=== PATIENT | male | born 1975 | race Caucasian/White ===

== ENCOUNTER 2016-11-07 17:51 | Emergency (ER) | payer OTHER ==
[~2016-11-07] VITALS: Ht 165.1 cm; Wt 84.0 kg
[~2016-11-07 17:51] MED LIST: ASPEC81 PO; ATEN-175 PO; ATOR-26 PO; CLOP1TAB5 PO; IBUP-1050 PO; LISI-729 PO; NTRSLP4 SL
[2016-11-07 17:58] VITALS: TEMP 36.5; Ht 165.1 cm; Wt 84.0 kg
[2016-11-07] MEDS ORDERED: KETOROLAC TROMETHAMINE 60 MG/2 ML VIAL IM STA (18:28)
--- NOTE | 2016-11-07 19:12 | EMERGENCY ROOM VISIT NOTE ---
History First contact with patient: 18:05 Chief Complaint: BACK PAIN Stated Complaint: BACK PAIN History of Present Illness The patient is a 41 year old male who presents to the Emergency Room with complaints of a sudden onset of back pain. The patient states that he was moving a box off the countertop, and when he went to turn around he felt a popping sensation in his low back. He states that his legs "gave out" and he fell to the ground. He reports pain from his lower back radiating down both his legs. He states that his legs feel like they are "on fire." The symptoms are worse in the right leg than the left leg. He states that his legs are shaking. He reports it is more painful to sit. He does report a history of back problems. He states he was seen a few years ago and had physical therapy, which completely resolved his symptoms. He rates his current discomfort a 7/ 10. He did not take anything at home for his pain. He denies any urinary symptoms, incontinence, numbness or weakness. He denies nausea, vomiting or abdominal pain. Review of Systems A complete 10 point review of systems was reviewed with the patient with pertinent positives and negatives as per history of present illness. All else were negative. Past Medical/Surgical History Medical Problems: (1) Acute [place] inferior lateral first episode care (2) Anterior myocardial infarction (3) Coronary Atherosclerosis Of [place] Coronary Vessel (4) Gout (5) Hyperlipidemia Nec/Nos (6) Hypertension Nos (7) Hypertension Nos (8) Kidney stones (9) Right shoulder strain (10) ST elevation [place] (STEMI) (11) Tobacco Use Disorder (12) Work related injury Surgical Problems: (1) History of cardiac catheterization (2) S/P PTCA (percutaneous transluminal coronary angioplasty) Family History Heart disease Hypertension Social History Smoking Status: Current Every Day Smoker Alcohol Use: none Drug Use: none Marital Status: Housing Status: lives with significant other Occupation Status: employed Current/Historical Medications Scheduled Aspirin (Aspirin EC Low Dose), 81 MG PO QAM Atenolol (Tenormin), 100 MG PO DAILY Atorvastatin (Lipitor), 80 MG PO DAILY Clopidogrel Bisulfate (Plavix), 75 MG PO DAILY Lisinopril (Zestril), 5 MG PO DAILY Prednisone (Prednisone), 0 PO DAILY Scheduled PRN Hydrocodone/Acetaminophen 5MG/325MG ([place] 5MG/325MG), 1-2 TABLET PO Q4H PRN for Pain Ibuprofen (Advil), 200-800 MG PO Q4H PRN for Pain Allergies Coded Allergies: No Known Allergies (Unverified , 11/07/16) Physical Exam Vital Signs Date Time Temp Pulse Resp B/P (MAP) Pulse Ox O2 Delivery O2 Flow Rate FiO2 11/07/16 21:06 82 20 134/104 96 11/07/16 20:01 80 18 171/112 98 Room Air 11/07/16 17:58 36.5 95 22 177/100 98 Room Air Physical Exam VITALS: Vitals are noted on the nurse's note and reviewed by myself. Vital signs stable. GENERAL: This is a 41-year-old male, laying on his side and appears to be in pain, nondiaphoretic, well-developed well-nourished. SKIN: No rashes noted. HEART: Regular rate and rhythm without murmurs gallops or rubs. LUNGS: Clear to auscultation bilaterally without wheezes, rales or rhonchi. No retractions or accessory muscle use. ABDOMEN: Soft, nontender. MUSCULOSKELETAL: There is no tenderness over the lumbar spinous processes or paraspinous muscles. Strength 4/5 in bilateral lower extremities. Patellar reflexes 2+. NEURO: Patient was alert and oriented to person place and time. Normal sensation to light and sharp touch. Deep tendon reflexes 2+ throughout. Medical Decision & Procedures ER Provider Diagnostic Interpretation: MRI OF THE LUMBAR SPINE WITHOUT CONTRAST FINDINGS: For purposes of numbering on this exam, the L5-S1 disc space is assigned to axial image 26 of 30. There is no intracanalicular mass or fluid collection. Study is mildly compromised by motion artifact. Conus terminates at the upper L1 level. Paravertebral soft tissues are unremarkable. Several schmorl's nodes are noted. L1-2: There is minimal disc bulge with a central annular tear and tiny central disc protrusion. Central canal and neural foramen are patent. L2-3: Central canal and neural foramen are patent. L3-4: Central canal and neural foramen are patent. L4-5: There is a tiny central disc protrusion. The central canal is patent. There is mild narrowing of the right neural foramen. This is unchanged since prior MRI of October 16, 2011. L5-S1: There is a small central disc protrusion. The central canal is patent. There is mild facet arthrosis. There is mild narrowing of both neural foramen. IMPRESSION: 1. No change in appearance of the lumbar spine since MRI of October 16, 2011. No fracture. 2. Small central disc protrusions at L5-S1 and L4-L5. Patent central canal. 3. Mild multilevel facet arthrosis with mild multilevel neural foraminal stenosis. Medications Administered Medications (Trade) Dose Ordered Sig/Aly Route Start Time Stop Time Status Last Admin Dose Admin Ketorolac Tromethamine (Toradol Inj) 60 mg NOW STAT IM 11/07/16 18:28 11/07/16 18:29 DC 11/07/16 18:49 60 MG Morphine Sulfate (MoRPHine SULFATE INJ) 8 mg NOW STAT IM 11/07/16 20:23 11/07/16 20:24 DC 11/07/16 20:44 8 MG Acetaminophen/ Hydrocodone Bitart ([place] 5/325mg Home Pack) 1 homepack UD ONCE PO 11/07/16 21:00 11/07/16 21:01 DC 11/07/16 21:00 1 HOMEPACK ED Course The patient was evaluated as above. Patient was medicated with 60 mg Toradol intramuscularly. He declined narcotic analgesics. MRI of the lumbar spine was performed and read by radiology as above. Patient was reevaluated and had little relief. He was able to sit up and move more easily. 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 He was ordered 8 mg morphine IM. Discharge instructions were reviewed with the patient. The patient verbalized understanding of my assessment and treatment plan and was discharged home in good condition. Medical Decision Differential diagnosis includes cauda equina syndrome, cord compression, disc herniation, muscle spasm, lumbar strain, epidural abscess, malignancy, transverse myelitis, urinary tract infection, colitis, diverticulitis, kidney stone, among others. The patient is a 41-year-old male who presents today complaining of lumbar back pain with bilateral radiculopathy. Physical exam showed mild bilateral weakness , which may be due to the patient's discomfort. Due to his extreme discomfort and sudden onset of bilateral radiculopathy, a lumbar spine MRI was ordered. This was interpreted by radiology with no significant findings. He does have some degenerative disc disease. He has followed up with ortho spine in the past and was referred back to them. He did have some relief with Toradol and morphine. He was given a short course of [place] to be taken at home. Based on the patient's presentation and work up, I feel the patient is stable for outpatient treatment. The patient was educated to return to the emergency department for any worsening of their current condition or new/concerning symptoms. He will follow up with his pcp and Dr. Nieves. Medication reconciliation: I attest that I have personally reviewed the patient 's current medication list. Blood pressure screening: Patient was found to have an elevated blood pressure and was referred to their primary care provider for recheck and further treatment. [place] Drug Monitoring Program Search Results: patient reviewed within database, no issues identified Impression Primary Impression: Lumbar radiculopathy Departure Information Dispostion Home / Self-Care Condition GOOD Prescriptions Prednisone (Prednisone) 20 Mg Tab 0 PO DAILY, #18 TAB 3 DAILY FOR 3 DAYS, THEN 2 DAILY FOR 3 DAYS, THEN 1 DAILY FOR 3 DAYS. Prov: Kareen Johnson PA-C 11/07/16 Hydrocodone/Acetaminophen 5MG/325MG ([place] 5MG/325MG) Tab 1-2 TABLET PO Q4H Y for Pain, #15 TAB For Initial Treatment Prov: Kareen Johnson PA-C 11/07/16 Referrals Coy Wyatt D.O. (PCP) Patient Instructions My [facility] Additional Instructions You have been treated in the Emergency Department for Back Pain. You have received pain medicine in the emergency department which impairs your ability to operate a vehicle. It is illegal for you to drive after receiving these medicines. You have been prescribed [place] to be used for pain control. This is a narcotic medication. You cannot drive or consume alcohol while on this medicine. This medicine should only be used for pain that cannot be controlled with over-the- counter pain medicines. For pain control, you can use the following [id number] medicines (if >12 yo): - Regular strength (325mg/tab) Tylenol (acetaminophen) 2 tabs every 4-6 hours as needed. Do not exceed 12 tablets in a 24 hour period. Avoid taking more than 4 grams (4000 mg) of Tylenol per day. This includes any other sources of acetaminophen you may take on a regular basis. - Regular strength (200 mg/tab) Advil (ibuprofen) 1-2 tabs every 4-6 hours as needed. Do not exceed a dose of 3200 mg per day. If this is an acute injury, ice can be applied to the area of pain for the first 3 days to help decrease pain and inflammation. After the first 3 days, a heating pad can be used over the area for continued soothing relief. Follow-up with your back specialist for further evaluation of your back pain. Return to the Emergency Department if your current symptoms worsen despite treatment course outlined above, or if you develop any of the following symptoms : intractable pain despite aforementioned treatment course, loss of control of your bowel or bladder, numbness or tingling in your groin, or development of a fever.
--- NOTE | 2016-11-07 20:12 | DIAGNOSTIC IMAGING REPORT ---
MRI OF THE LUMBAR SPINE WITHOUT CONTRAST CLINICAL HISTORY: Low back pain with bilateral radiculopathy and leg weakness. COMPARISON STUDY: Lumbar spine MRI October 16, 2011 and lumbar spine radiographs April 24, 2012. TECHNIQUE: Utilizing a 1.5 Nona magnet and dedicated coil, multiplanar, multiecho imaging of the lumbar spine was performed without IV contrast. FINDINGS: For purposes of numbering on this exam, the L5-S1 disc space is assigned to axial image 26 of 30. There is no intracanalicular mass or fluid collection. Study is mildly compromised by motion artifact. Conus terminates at the upper L1 level. Paravertebral soft tissues are unremarkable. Several schmorl's nodes are noted. L1-2: There is minimal disc bulge with a central annular tear and tiny central disc protrusion. Central canal and neural foramen are patent. L2-3: Central canal and neural foramen are patent. L3-4: Central canal and neural foramen are patent. L4-5: There is a tiny central disc protrusion. The central canal is patent. There is mild narrowing of the right neural foramen. This is unchanged since prior MRI of October 16, 2011. L5-S1: There is a small central disc protrusion. The central canal is patent. There is mild facet arthrosis. There is mild narrowing of both neural foramen. IMPRESSION: 1. No change in appearance of the lumbar spine since MRI of October 16, 2011. No fracture. 2. Small central disc protrusions at L5-S1 and L4-L5. Patent central canal. 3. Mild multilevel facet arthrosis with mild multilevel neural foraminal stenosis. Electronically signed by: Otf Russell M.D. 11/07/2016 8:10 PM Dictated Date/Time: 11/07/2016 8:03 PM
[2016-11-07] MEDS ORDERED: MoRPHine SULFATE 10 MG/ML CARP/VIAL IM STA (20:23)
[2016-11-07] MEDS ORDERED: HYDR-5688 PO (20:47)
[2016-11-07] MEDS ORDERED: NORCO 5/325MG HOME PACK PO ONE (21:00)
[2016-11-07] MEDS ORDERED: PRED20TA PO (21:01)
[2016-11-07 21:06] VITALS: BP 134/104; PULSE 82; O2SAT 96
== END 2016-11-07 21:07 | disposition home or self-care (01) ==
LOC: C.EDB 17:52 → C.EDC 21:07
DX: M54.16 Radiculopathy, lumbar region (principal); I25.2 Old myocardial infarction; I25.10 Atherosclerotic heart disease of native coronary artery without angina pectoris; M10.9 Gout, unspecified; E78.5 Hyperlipidemia, unspecified; I10 Essential (primary) hypertension; Z87.442 Personal history of urinary calculi; Z82.49 Family history of ischemic heart disease and other diseases of the circulatory system; F17.210 Nicotine dependence, cigarettes, uncomplicated; Z79.82 Long term (current) use of aspirin; Z79.899 Other long term (current) drug therapy

== ENCOUNTER 2019-03-17 10:17 | Inpatient (IN) ==
[~2019-03-17 10:17] MED LIST changes: -ASPEC81 PO; -ATEN-175 PO; -ATOR-26 PO; -CLOP1TAB5 PO; -IBUP-1050 PO; -LISI-729 PO; -NTRSLP4 SL; +SODIUM CHLORIDE 0.9% 1000ML 1,000 ML IV SCH
[2019-03-17] MEDS ORDERED: OPTIRAY 320 125ml IV PRN (10:25)
[2019-03-17] MEDS ORDERED: ALTEPLASE For Stroke IV STA (10:30)
--- NOTE | 2019-03-17 10:32 | CT Scan Report ---
CT head/brain wo con CLINICAL HISTORY: Unresponsive patient. Possible acute stroke. COMPARISON STUDY: No previous studies for comparison. TECHNIQUE: Axial CT of the brain is performed from the vertex to the skull base. IV contrast was not administered for this examination. A dose lowering technique was utilized adhering to the principles of ALARA. CT DOSE: FINDINGS: No intra or extra-axial mass lesions are visualized. There is no CT evidence of acute cortical infarc tion. There is no evidence of midline shift. There is no acute hemorrhage. No calvarial fractures ar e visualized. There are minor white matter hypodensities likely on a small vessel basis. There is a left cerebellar hypodensity versus artifact. There is no evidence of pathologic ventricular dilatation. There is partial opacification of multiple ethmoid air cells. IMPRESSION: 1. No evidence of acute hemorrhage 2. Left cerebellar hypodensity versus artifact. If neurological symptoms persist, an MRI of the brain should be considered in follow-up Electronically signed by: Pérez Farrar M.D. 03/17/2019 10:31 AM
[2019-03-17] MEDS ORDERED: ONDANSETRON INJ 2 MG/ML 2 ML VIAL ONE (10:37)
[2019-03-17] MEDS ORDERED: Alteplase Bolus 7.2 MG in SYRINGE 0 ML IV ONE (10:40)
[2019-03-17] MEDS ORDERED: ALTEPLASE, RECOMBINANT 100 MG VIAL IV ONE (10:41)
[2019-03-17] MEDS ORDERED: PRIMARY PLUMSET, PE LINED TUBING, 113 IN, NON-DEHP (2260-0500) IV ONE (10:41)
[2019-03-17] MEDS ORDERED: ALTEPLASE, RECOMBINANT 64 MG in EMPTY BAG 0 ML IV ONE (10:41)
--- NOTE | 2019-03-17 10:41 | CT Scan Report ---
CT angio neck with con CLINICAL HISTORY: 43 years-old Male presenting with stroke alert, unresponsive, weakness. TECHNIQUE: Multidetector CT angiography of the neck was performed after the administration of intrave nous contrast. 3-D volumetric and/or maximum intensity projection (MIP) images were subsequently martin nstructed for review. IV contrast: 119 mL of Optiray 320. One or more dose lowering techniques were u sed consistent with the principles of ALARA (as low as reasonably achievable), including automatic ex posure control, mA or kV adjustment to individual patient size, and/or use of iterative reconstructio n. Stenosis measurements were based on NASCET-like criteria (distal lumen diameter as the denominator for stenosis measurement). COMPARISON: None. CT DOSE (mGy.cm): The estimated cumulative dose is 1162.85 mGy.cm. FINDINGS: Supervisor Webbing topogram: Unremarkable. Aortic arch: Normal three-vessel aortic arch with patent origins of the branch vessels. Innominate artery: Patent. Right subclavian artery: Patent. Right common carotid artery: Patent. Right internal and external carotid arteries: Right carotid bifurcation patent. Right internal and ex ternal carotid arteries widely patent. Left common carotid artery: Patent. Left internal and external carotid arteries: Left carotid bifurcation patent. Left internal and exter nal carotid arteries widely patent. Left subclavian artery: Patent. Vertebral arteries: Left dominant vertebral artery. Origin and course of the left vertebral artery pa tent. Nonopacification of the origin and proximal course of the right vertebral artery, which is subs equently reconstituted at the level of C6. The artery is again not opacified in the foramen transvers arium at the level of C4 with subsequent reconstitution. Other: Limited intracranial evaluation within normal limits. Soft tissues of the neck normal allowing for the phase of contrast. Normal cervical spine. Mosaic attenuation of the lung apices. IMPRESSION: 1. Intermittent nonopacification of the right vertebral artery including the origin and proximal cou rse to the level of C6. Intermittent reconstitution of flow from C6 to C5 with nonopacification at th e level of C4 and subsequent reconstitution above this level. This is concerning for acute vascular i njury, namely multifocal occlusion/dissection. Alternatively, intermittent flow within the right vert ebral artery could relate to the fact that it is the nondominant vertebral artery with slower flow. 2. Notably, the posterior circulation relies on a left dominant vertebral artery. 3. Normal anterior circulation. 4. Small airways disease versus congestive change at the lung apices. The report will be called/faxed according to standard departmental protocol. Electronically signed by: Juan Pablo Reeves M.D. 03/17/2019 10:39 AM
[2019-03-17 10:45] LABS: Basophils # (auto) 0.02 K/uL (0-0.2); Basophils % (auto) 0.2 %; Eosinophils # (auto) 0.17 K/uL (0-0.5); Eosinophils % (auto) 1.8 %; Hemoglobin 12.2 g/dL (14.0-18.0); Immature Granulocytes # (auto) 0.03 K/uL (0.00-0.02); Immature Granulocytes % (auto) 0.3 %; Lymphocytes # (auto) 3.25 K/uL (1.2-3.4); Lymphocytes % (auto) 34.2 %; Mean Corpuscular Hemoglobin 28.4 pg (25-34); Mean Corpuscular Hgb Conc 33.9 g/dL (32-36); Mean Corpuscular Volume 83.9 fL (80-100); Mean Platelet Volume 10.3 fL (7.4-10.4); Monocytes # (auto) 0.66 K/uL (0.11-0.59); Monocytes % (auto) 6.9 %; Neutrophils # (auto) 5.38 K/uL (1.4-6.5); Neutrophils % (auto) 56.6 %; Platelet Count 196 K/uL (130-400); RDW Coefficient of Variation 13.7 % (11.5-14.5); RDW Standard Deviation 41.1 fL (36.4-46.3); Red Blood Count 4.29 M/uL (4.7-6.1); White Blood Count 9.51 K/uL (4.8-10.8)
--- NOTE | 2019-03-17 10:45 | CT Scan Report ---
CT angio head w con CLINICAL HISTORY: weakness TECHNIQUE: CT angiography of the head was performed in a dynamic helical fashion during intravenous a dministration of 119 cc of Optiray 320. MIP imaging was performed. A dose lowering technique was util ized adhering to the principles of ALARA. CT DOSE: COMPARISON STUDY: No previous studies for comparison. FINDINGS: There are no lesion suspicious for aneurysm. There are no major intracranial branch occlusi ons. The dural venous sinuses appear patent. IMPRESSION: Unremarkable CT angiography of the brain. Electronically signed by: Pérez Farrar M.D. 03/17/2019 10:43 AM
[2019-03-17 10:54] LABS: iSTAT Creatinine 0.9 mg/dl (0.6-1.3); iSTAT Hemoglobin 11.9 g/dl (14.0-18.0); iSTAT Ionized Calcium 1.08 mmol/l (1.12-1.32); iSTAT Potassium 3.3 mEq/L (3.3-5.0)
[2019-03-17 10:56] LABS: INR 1.1 (0.9-1.1); Partial Thromboplastin Ratio 0.9; Partial Thromboplastin Time 24.2 Seconds (21.0-31.0); Prothrombin Time 11.1 Seconds (9.0-12.0)
--- NOTE | 2019-03-17 10:58 | Emergency Department Note ---
Entered by Jaci Steen acting as a scribe for History of Present Illness General Chief complaint: Stroke Alert Source: patient and EMS History of Present Illness Onset (ago): minute(s) (41) Location: head Pain Consistency: + other (episode) Maximum Pain Intensity: 6 Quality: + other (stroke symptoms) Associated symptoms: + headaches, + nausea/vomiting (nausea), + syncope, + weakness (left arm) and + other (left facial droop) The patient is a 43 year old male who presents to the Emergency Room with complaints of an episode of stroke symptoms starting at 0938, 41 minutes ago. 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 They report that when he came to, he had a left sided deficit. They state that he has had a left sided facial droop and left arm weakness. They state that 911 was immediately called and when they arrived, they called here for [facility] right after. The patient notes that he was feeling fine all morning till this episode besides having a headache that s tarted last night. The patient complains of nausea. Home Medications Home Medications Medication Instructions Recorded Confirmed Type atenolol 100 mg tablet 100 mg PO DAILY #90 tab 03/09/19 03/17/19 History atorvastatin 80 mg tablet 80 mg PO DAILY #90 tab 03/09/19 03/17/19 History clopidogrel 75 mg tablet 75 mg PO DAILY #90 tab 03/09/19 03/17/19 History lisinopril 5 mg tablet 5 mg PO DAILY #90 tab 03/09/19 03/17/19 History aspirin [Aspir-81] 81 mg PO DAILY 03/17/19 03/17/19 History Allergies Allergy/AdvReac Type Severity Reaction Status Date / Time No Known Allergies Allergy Unverified 03/17/19 11:13 Past Med/Surg History Medical History Right shoulder strain (Resolved) Acute NM inferior lateral first episode care (Resolved) Lumbar radiculopathy (Acute) Coronary atherosclerosis HLD (hyperlipidemia) HTN (hypertension) Kidney stones Surgical History History of PTCA S/P cardiac cath Family History Other Heart disease Hypertension Social History Preferred Language: Syriac Communication Ability: Effective 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 and A total of 10 systems reviewed and were otherwise negative Physical Exam Vital Signs Vital Signs - 24 hr 03/17/19 09:58 03/17/19 10:31 03/17/19 10:40 Temperature 36.9 C Temperature Source Oral Sepsis Recent Fever Within 48 Hours No Sepsis New/Unexplained Change in Mental Status No Sepsis Action Taken by Nursing No Action Required Pulse Rate 92 H 89 82 Pulse Rate [Apical] Pulse Rate from SpO2 Sensor 90 Respiratory Rate 16 34 H 15 Blood Pressure 142/82 H 142/82 H 145/94 H Blood Pressure [Left Arm] Blood Pressure Mean 102 102 111 Blood Pressure Mean [Left Arm] Pulse Oximetry 97 97 Oxygen Delivery Method Room Air 03/17/19 10:44 03/17/19 10:50 03/17/19 10:51 Temperature Temperature Source Sepsis Recent Fever Within 48 Hours Sepsis New/Unexplained Change in Mental Status Sepsis Action Taken by Nursing Pulse Rate 75 70 80 Pulse Rate [Apical] 68 Pulse Rate from SpO2 Sensor 70 80 Respiratory Rate 18 14 45 H Blood Pressure 128/81 135/88 Blood Pressure [Left Arm] 135/88 Blood Pressure Mean 96 103 Blood Pressure Mean [Left Arm] 103 Pulse Oximetry 97 97 Oxygen Delivery Method Room Air 03/17/19 11:00 03/17/19 11:10 03/17/19 11:20 Temperature Temperature Source Sepsis Recent Fever Within 48 Hours Sepsis New/Unexplained Change in Mental Status Sepsis Action Taken by Nursing Pulse Rate 73 68 69 Pulse Rate [Apical] Pulse Rate from SpO2 Sensor 73 67 70 Respiratory Rate 20 21 13 Blood Pressure 135/83 134/86 127/85 Blood Pressure [Left Arm] Blood Pressure Mean 100 102 99 Blood Pressure Mean [Left Arm] Pulse Oximetry 98 98 100 Oxygen Delivery Method 03/17/19 11:30 03/17/19 11:40 Temperature Temperature Source Sepsis Recent Fever Within 48 Hours Sepsis New/Unexplained Change in Mental Status Sepsis Action Taken by Nursing Pulse Rate 65 63 Pulse Rate [Apical] Pulse Rate from SpO2 Sensor 65 62 Respiratory Rate 18 17 Blood Pressure 124/92 131/87 Blood Pressure [Left Arm] Blood Pressure Mean 102 101 Blood Pressure Mean [Left Arm] Pulse Oximetry 99 99 Oxygen Delivery Method GENERAL: The patient is awake and on follows commands. EYES: The conjunctivae are clear. The pupils are round and reactive. The zo ent does not have a gaze preference. EARS, NOSE, MOUTH AND THROAT: The nose is without any evidence of any deformity. Mucous membranes are moist.Tongue is midline NECK: The neck is nontender and supple. RESPIRATORY: Normal respiratory effort is noted. There is no evidence of wheezing rhonchi or rales to auscultation. CARDIOVASCULAR: Regular rate and rhythm noted. There no murmurs rubs or gallops normal S1 normal S2 GASTROINTESTINAL: The abdomen is soft. Bowel sounds are present in all quadrants. Abdomen is nontender. MUSCULOSKELETAL/EXTREMITIES: There is no evidence of gross deformity. Full range of motion is noted in the hips and shoulders. SKIN: There is no obvious evidence of any rash. There are no petechiae, pallor or cyanosis noted. NEUROLOGIC: Patient is oriented to person place and situation. He answers questions appropriately. He does have a slight facial droop involving the left corner of the mouth. There is a drift in the left upper extremity. Photo Lab Specialist strength is diminished in the left upper extremity compared to the right. The patient is able to hold each of the legs off of the bed approximately 5 seconds. Course 1007: I called a stroke alert at this time. 1019: Past medical records reviewed. The patient was evaluated in room B1. A complete history and physical exam was performed. 1024: I discussed the patient's case with Dr. Nithin Saleem Neurology. He will evaluate the patient via telestroke. 1045: I reevaluated the patient and Dr. Nithin Saleem Neurology is just finishing evaluating him, 1048: I discussed the patient's case with Dr. Nithin Saleem Neurology. He recommends giving the patient TPA at this time and admitting. 1050: I reevaluated the patient and verbally consented him for TPA administration at this time. 1054: TPA was given to the patient at this time. 110: I discussed the patient's case with Dr. Bower [facility] Hospitalist. He will evaluate the patient for further management. 1117: I reevaluated the patient and his is at bedside. I updated the patient and her on his test results. I discussed the treatment plan with them. They verbally agree and understand. Administered Medications Discontinued Medications Sodium Chloride (Nss 1000ml) 1,000 mls @ 50 mls/hr IV .Q20H SEBASTIÁN Stop: 04/16/19 10:14 Last Admin: 03/17/19 10:30 Dose: 50 mls/hr Documented by: [id number] Alteplase, Recombinant 7.2 mg/ (Syringe) 7.2 mls @ 7.2 mls/min IV ONCE ONE Stop: 03/17/19 10:41 Last Admin: 03/17/19 10:52 Dose: 7.2 mls/min Documented by: [id number] Cosigned by: [id number] Alteplase, Recombinant 64 mg/ (EMPTY BAG) 64 mls @ 64 mls/hr IV ONCE ONE Stop: 03/17/19 10:42 Last Infusion: 03/17/19 14:03 Dose: 0 mls/hr Documented by: [id number] Cosigned by: [id number] Admin: 03/17/19 10:54 Dose: 64 mls/hr Documented by: [id number] Cosigned by: [id number] Promethazine HCl (Phenergan) 6.25 mg in 50.25 mls @ 201 mls/hr IV NOW STA Stop: 03/17/19 11:35 Last Infusion: 03/17/19 11:48 Dose: 0 mls/hr Documented by: [id number] Admin: 03/17/19 11:29 Dose: 201 mls/hr Documented by: [id number] Sodium Chloride (Nss 1000ml) 1,000 mls @ 60 mls/hr IV .[id number] SEBASTI[place]N Stop: 04/16/19 12:57 Last Admin: 03/17/19 14:25 Dose: 60 mls/hr Documented by: [id number] Ioversol (Optiray 320 125ml) 119 ml IV ONCE PRN PRN Reason: Interaction Checking Stop: 03/21/19 10:24 Last Admin: 03/17/19 10:25 Dose: 119 ml Documented by: [id number] Ondansetron HCl (Zofran) Confirm Administered Dose 4 mg .ROUTE .[facility] ONE Stop: 03/17/19 10:38 Last Admin: 03/17/19 10:39 Dose: 4 mg Documented by: [id number] Medical Decision Making Differential Diagnosis Differential Diagnosis includes but is not limited to ischemic Stroke, hemorrhagic stroke, bells palsy, mass, neoplasm, migraine headache, seizure, sub arachnoid hemorrhage, TIA, and transient global amnesia. Medical Records Attestation: I reviewed the patient's medical records. Home Medications Current Medication List: was personally reviewed by me Laboratory Data Attestation: I reviewed the patient's lab results. Result diagrams: 03/17/19 10:32 03/17/19 10:32 Lab Results 03/17/19 03/17/19 03/17/19 Range/Units 10:32 10:32 10:32 WBC 9.51 (4.8-10.8) K/uL RBC 4.29 L (4.7-6.1) M/uL Hgb 12.2 L (14.0-18.0) g/dL POC Hgb (14.0-18.0) g/dl Hct 36.0 L (42-52) % POC Hct (42-52) % MCV 83.9 (80-100) fL MCH 28.4 (25-34) pg MCHC 33.9 (32-36) g/dL RDW Std Deviation 41.1 (36.4-46.3) fL RDW Coeff of Jerzy 13.7 (11.5-14.5) % Plt Count 196 (130-400) K/uL MPV 10.3 (7.4-10.4) fL Immature Gran % (Auto) 0.3 % Neut % (Auto) 56.6 % Lymph % (Auto) 34.2 % [place] % (Auto) 6.9 % Eos % (Auto) 1.8 % Baso % (Auto) 0.2 % Immature Gran # (Auto) 0.03 H (0.00-0.02) K/uL Neut # (Auto) 5.38 (1.4-6.5) K/uL Lymph # (Auto) 3.25 (1.2-3.4) K/uL [place] # (Auto) 0.66 H (0.11-0.59) K/uL Eos # (Auto) 0.17 (0-0.5) K/uL Baso # (Auto) 0.02 (0-0.2) K/uL PT 11.1 (9.0-12.0) Seconds POC INR (0.9-1.1) INR 1.1 (0.9-1.1) APTT 24.2 (21.0-31.0) Seconds PTT Ratio 0.9 POC Sodium (135-144) mEq/L Sodium 135 L (136-145) mmol/L POC Potassium (3.3-5.0) mEq/L Potassium 3.3 L (3.5-5.1) mmol/L POC Chloride (101-112) mEq/L Chloride 104 (98-107) mmol/L Carbon Dioxide 20 L (21-32) mmol/L POC Total CO2 (24-31) mEq/l Anion Gap 11.0 (3-11) POC Anion Gap (16-25) mmol/L POC BUN (7-18) mg/dl BUN 12 (7-18) mg/dl Creatinine 1.07 (0.6-1.4) mg/dl POC Creatinine (0.6-1.3) mg/dl Est Cr Clr Drug Dosing 88.1 ml/min Est GFR ( Amer) 97.3 Est GFR (Non-Af Amer) 84.0 BUN/Creatinine Ratio 11.4 (10-20) Glucose 149 H (70-99) mg/dl POC Glucose (70-99) POC Glucose (other) (70-99) mg/dl Calcium 8.2 L (8.5-10.1) mg/dl POC Ioniz Calcium Michi (1.12-1.32) mmol/l Magnesium 2.0 (1.8-2.4) mg/dl Total Bilirubin 0.5 (0.2-1) mg/dl AST 22 (15-37) U/L ALT 27 (12-78) U/L Alkaline Phosphatase 78 (45-117) U/L Troponin I < 0.015 (0-0.045) ng/ml Total Protein 6.0 L (6.4-8.2) gm/dl Albumin 3.5 (3.4-5.0) gm/dl Globulin 2.5 (2.5-4.0) gm/dl Albumin/Globulin Ratio 1.4 (0.9-2) Blood Type Antibody Screen 03/17/19 03/17/19 03/17/19 Range/Units 10:32 10:36 10:36 WBC (4.8-10.8) K/uL RBC (4.7-6.1) M/uL Hgb (14.0-18.0) g/dL POC Hgb (14.0-18.0) g/dl Hct (42-52) % POC Hct (42-52) % MCV (80-100) fL MCH (25-34) pg MCHC (32-36) g/dL RDW Std Deviation (36.4-46.3) fL RDW Coeff of Jerzy (11.5-14.5) % Plt Count (130-400) K/uL MPV (7.4-10.4) fL Immature Gran % (Auto) % Neut % (Auto) % Lymph % (Auto) % [place] % (Auto) % Eos % (Auto) % Baso % (Auto) % Immature Gran # (Auto) (0.00-0.02) K/uL Neut # (Auto) (1.4-6.5) K/uL Lymph # (Auto) (1.2-3.4) K/uL [place] # (Auto) (0.11-0.59) K/uL Eos # (Auto) (0-0.5) K/uL Baso # (Auto) (0-0.2) K/uL PT (9.0-12.0) Seconds POC INR 1.0 (0.9-1.1) INR (0.9-1.1) APTT (21.0-31.0) Seconds PTT Ratio POC Sodium (135-144) mEq/L Sodium (136-145) mmol/L POC Potassium (3.3-5.0) mEq/L Potassium (3.5-5.1) mmol/L POC Chloride (101-112) mEq/L Chloride (98-107) mmol/L Carbon Dioxide (21-32) mmol/L POC Total CO2 (24-31) mEq/l Anion Gap (3-11) POC Anion Gap (16-25) mmol/L POC BUN (7-18) mg/dl BUN (7-18) mg/dl Creatinine (0.6-1.4) mg/dl POC Creatinine (0.6-1.3) mg/dl Est Cr Clr Drug Dosing ml/min Est GFR ( Amer) Est GFR (Non-Af Amer) BUN/Creatinine Ratio (10-20) Glucose (70-99) mg/dl POC Glucose 150 H (70-99) POC Glucose (other) (70-99) mg/dl Calcium (8.5-10.1) mg/dl POC Ioniz Calcium Michi (1.12-1.32) mmol/l Magnesium (1.8-2.4) mg/dl Total Bilirubin (0.2-1) mg/dl AST (15-37) U/L ALT (12-78) U/L Alkaline Phosphatase (45-117) U/L Troponin I (0-0.045) ng/ml Total Protein (6.4-8.2) gm/dl Albumin (3.4-5.0) gm/dl Globulin (2.5-4.0) gm/dl Albumin/Globulin Ratio (0.9-2) Blood Type A Positive Antibody Screen NEGATIVE 03/17/19 Range/Units 10:39 WBC (4.8-10.8) K/uL RBC (4.7-6.1) M/uL Hgb (14.0-18.0) g/dL POC Hgb 11.9 L (14.0-18.0) g/dl Hct (42-52) % POC Hct 35 L (42-52) % MCV (80-100) fL MCH (25-34) pg MCHC (32-36) g/dL RDW Std Deviation (36.4-46.3) fL RDW Coeff of Jerzy (11.5-14.5) % Plt Count (130-400) K/uL MPV (7.4-10.4) fL Immature Gran % (Auto) % Neut % (Auto) % Lymph % (Auto) % [place] % (Auto) % Eos % (Auto) % Baso % (Auto) % Immature Gran # (Auto) (0.00-0.02) K/uL Neut # (Auto) (1.4-6.5) K/uL Lymph # (Auto) (1.2-3.4) K/uL [place] # (Auto) (0.11-0.59) K/uL Eos # (Auto) (0-0.5) K/uL Baso # (Auto) (0-0.2) K/uL PT (9.0-12.0) Seconds POC INR (0.9-1.1) INR (0.9-1.1) APTT (21.0-31.0) Seconds PTT Ratio POC Sodium 135 (135-144) mEq/L Sodium (136-145) mmol/L POC Potassium 3.3 (3.3-5.0) mEq/L Potassium (3.5-5.1) mmol/L POC Chloride 102 (101-112) mEq/L Chloride (98-107) mmol/L Carbon Dioxide (21-32) mmol/L POC Total CO2 20 L (24-31) mEq/l Anion Gap (3-11) POC Anion Gap 18.0 (16-25) mmol/L POC BUN 11 (7-18) mg/dl BUN (7-18) mg/dl Creatinine (0.6-1.4) mg/dl POC Creatinine 0.9 (0.6-1.3) mg/dl Est Cr Clr Drug Dosing ml/min Est GFR ( Amer) Est GFR (Non-Af Amer) BUN/Creatinine Ratio (10-20) Glucose (70-99) mg/dl POC Glucose (70-99) POC Glucose (other) 147 H (70-99) mg/dl Calcium (8.5-10.1) mg/dl POC Ioniz Calcium Michi 1.08 L (1.12-1.32) mmol/l Magnesium (1.8-2.4) mg/dl Total Bilirubin (0.2-1) mg/dl AST (15-37) U/L ALT (12-78) U/L Alkaline Phosphatase (45-117) U/L Troponin I (0-0.045) ng/ml Total Protein (6.4-8.2) gm/dl Albumin (3.4-5.0) gm/dl Globulin (2.5-4.0) gm/dl Albumin/Globulin Ratio (0.9-2) Blood Type Antibody Screen Imaging Data Radiologist's Impression: Radiology results as stated below per my review and the radiologist's interpretation: XR chest 1V portable CLINICAL HISTORY: 43 years-old Male presenting with weakness. TECHNIQUE: Portable upright AP view of the chest was obtained. COMPARISON: 01/17/2015. FINDINGS: Atherosclerosis of the aortic arch. Cardiac silhouette enlarged. Pulmonary vascular prominence and vague perihilar added density. Mildly low lung volumes. No large effusion or pneumothorax. Degenerative changes of the thoracic spine. Upper abdomen normal. IMPRESSION: 1. Apparent cardiomegaly with volume overload and mild congestive change suggested. No darrell pulmonary edema at this time. 2. Mildly low lung volumes with hypoventilatory changes. Electronically signed by: Juan Pablo Reeves M.D. 03/17/2019 11:[address] head/brain wo con CLINICAL HISTORY: Unresponsive patient. Possible acute stroke. COMPARISON STUDY: No previous studies for comparison. TECHNIQUE: Axial CT of the brain is performed from the vertex to the skull base. IV contrast was not administered for this examination. A dose lowering technique was utilized adhering to the principles of ALARA. CT DOSE: FINDINGS: No intra or extra-axial mass lesions are visualized. There is no CT evidence of acute cortical infarction. There is no evidence of midline shift. There is no acute hemorrhage. No calvarial fractures are visualized. There are minor white matter hypodensities likely on a small vessel basis. There is a left cerebellar hypodensity versus artifact. There is no evidence of pathologic ventricular dilatation. There is partial opacification of multiple ethmoid air cells. IMPRESSION: 1. No evidence of acute hemorrhage 2. Left cerebellar hypodensity versus artifact. If neurological symptoms persist, an MRI of the brain should be considered in follow-up Electronically signed by: Pérez Farrar M.D. 03/17/2019 10:[address] angio head w con CLINICAL HISTORY: weakness TECHNIQUE: CT angiography of the head was performed in a dynamic helical fashion during intravenous administration of 119 cc of Optiray 320. MIP imaging was performed. A dose lowering technique was utilized adhering to the principles of ALARA. CT DOSE: COMPARISON STUDY: No previous studies for comparison. FINDINGS: There are no lesion suspicious for aneurysm. There are no major intracranial branch occlusions. The dural venous sinuses appear patent. IMPRESSION: Unremarkable CT angiography of the brain. Electronically signed by: Pérez Farrar M.D. 03/17/2019 10:[address] angio neck with con CLINICAL HISTORY: 43 years-old Male presenting with stroke alert, unresponsive, weakness. TECHNIQUE: Multidetector CT angiography of the neck was performed after the administration of intravenous contrast. 3-D volumetric and/or maximum intensity projection (MIP) images were subsequently reconstructed for review. IV contrast: 119 mL of Optiray 320. One or more dose lowering techniques were used consistent with the principles of ALARA (as low as reasonably achievable), including automatic exposure control, mA or kV adjustment to individual patient size, and/or use of iterative reconstruction. Stenosis measurements were based on NASCET-like criteria (distal lumen diameter as the denominator for stenosis measurement). COMPARISON: None. CT DOSE (mGy.cm): The estimated cumulative dose is 1162.85 mGy.cm. FINDINGS: Helminthology Teacher topogram: Unremarkable. Aortic arch: Normal three-vessel aortic arch with patent origins of the branch vessels. Innominate artery: Patent. Right subclavian artery: Patent. Right common carotid artery: Patent. Right internal and external carotid arteries: Right carotid bifurcation patent. Right internal and external carotid arteries widely patent. Left common carotid artery: Patent. Left internal and external carotid arteries: Left carotid bifurcation patent. Left internal and external carotid arteries widely patent. Left subclavian artery: Patent. Vertebral arteries: Left dominant vertebral artery. Origin and course of the left vertebral artery patent. Nonopacification of the origin and proximal course of the right vertebral artery, which is subsequently reconstituted at the level of C6. The artery is again not opacified in the foramen transversarium at the level of C4 with subsequent reconstitution. Other: Limited intracranial evaluation within normal limits. Soft tissues of the neck normal allowing for the phase of contrast. Normal cervical spine. Mosaic attenuation of the lung apices. IMPRESSION: 1. Intermittent nonopacification of the right vertebral artery including the origin and proximal course to the level of C6. Intermittent reconstitution of flow from C6 to C5 with nonopacification at the level of C4 and subsequent reconstitution above this level. This is concerning for acute vascular injury, namely multifocal occlusion/dissection. Alternatively, intermittent flow within the right vertebral artery could relate to the fact that it is the nondominant vertebral artery with slower flow. 2. Notably, the posterior circulation relies on a left dominant vertebral artery. 3. Normal anterior circulation. 4. Small airways disease versus congestive change at the lung apices. The report will be called/faxed according to standard departmental protocol. Electronically signed by: Juan Pablo Reeves M.D. 03/17/2019 10:39 AM ECG Data Attestation: I personally reviewed and interpreted this ECG as follows: Indication: weakness Rate (beats per minute): 87 Rhythm: normal sinus Findings: no PAC, no PVC, no ST depression, no ST elevation, no acute ischemic change and no ectopy Comparison ECG Date: from (01/20/2016) Change: no significant change Blood Pressure Blood Pressure Findings: Elevated blood pressure Blood Pressure Disposition: further management by hospitalist NOLBERTO Powers The patient is a 43-year-old male who presented to the emergency department for an evaluation of acute strokelike symptoms. The patient had been complaining of a headache recently. He also had a syncopal episode while at work. His son called the ambulance immediately after the patient had a syncopal episode. When he was reevaluated after the syncopal episode he was noted to have unilateral weakness with facial droop. The patient was treated with pain medication prior to arrival. His mental status was somewhat obtunded while he was evaluated multiple times his mental status continued to improve. The patient was felt to be a candidate for TPA given his normal initial CAT scan. I discussed this with him as well as his son. I discussed the risks and benefits of TPA with him. I discussed his case with the stroke neurologist from [facility]. The patient received TPA. I discussed the patient's angiography with him as well. He was found to have an area in the vertebral artery which appear to be consistent with either occlusion or dissection. This was discussed with the stroke neurologist and was not felt to be a contraindication at this time to TPA given the patient's symptoms. The patient was reevaluated multiple times. He was slowly improving on subsequent reevaluation. I discussed his case with the on-call [facility] hospitalist. They have agreed to evaluate the patient in the emergency department for further management disposition. Impression & Plan Stroke-like symptoms, Headache, Nausea & vomiting, Dissection of vertebral artery Critical Care Time Critical Care Time: Yes Total Critical Care Time: 60 I have personally spent greater than 60 minutes of critical care time in the direct management of this patient. This includes bedside care, interpretation of diagnostic studies, and testing, discussion with consultants, patient, and family members, and other required patient management activities. This 60 minutes is in excess of all separately billable procedures. Discharge Plan Visit Data *Final* Discharge Date/Time: 03/17/19 12:30 Chief Complaint: Stroke Alert ED Provider: Hamilton Gary Discharge Problem: Stroke-like symptoms, Headache, Nausea & vomiting, Dissection of vertebral artery Patient Disposition: Admitted As Inpatient Discharge Instructions Interventions: ED Discharge Assessment Last Done: 03/17/19 12:30 Queries: Stroke Queries Onset of Symptoms Date: 03/17/19 Onset of Symptoms Time: 09:38 Symptom Onset Unknown: No Discharge Problem: Headache Qualifiers: Headache type: unspecified Headache chronicity pattern: unspecified pattern Intractability: intractable Qualified Code(s): R51 - Headache Nausea & vomiting Qualifiers: Vomiting type: unspecified Vomiting Intractability: unspecified Qualified Code(s): R11.2 - Nausea with vomiting, unspecified The scribe's documentation has been prepared under my direction and personally reviewed by me in its entirety. I confirm that the note above accurately ref lects all work, treatment, procedures, and medical decision making performed by me.
[2019-03-17 11:04] LABS: Alanine Aminotransferase 27 U/L (12-78); Albumin Level 3.5 gm/dl (3.4-5.0); Aspartate Aminotransferase 22 U/L (15-37); BUN Creatinine Ratio 11.4 (10-20); Blood Urea Nitrogen 12 mg/dl (7-18); Calcium 8.2 mg/dl (8.5-10.1); Carbon Dioxide 20 mmol/L (21-32); Chloride 104 mmol/L (98-107); Creatinine Clr Calc Pharmacy 88.1 ml/min; Est GFR (African American) 97.3; Glucose 149 mg/dl (70-99); Potassium 3.3 mmol/L (3.5-5.1); Sodium 135 mmol/L (136-145)
[2019-03-17 11:08] LABS: Albumin Globulin Ratio 1.4 (0.9-2); Alkaline Phosphatase 78 U/L (45-117); Bilirubin,Total 0.5 mg/dl (0.2-1); Globulin 2.5 gm/dl (2.5-4.0); Troponin I < 0.015 ng/ml (0-0.045)
--- NOTE | 2019-03-17 11:12 | XRay Report ---
XR chest 1V portable CLINICAL HISTORY: 43 years-old Male presenting with weakness. TECHNIQUE: Portable upright AP view of the chest was obtained. COMPARISON: 01/17/2015. FINDINGS: Atherosclerosis of the aortic arch. Cardiac silhouette enlarged. Pulmonary vascular prominence and [place] perihilar added density. Mildly low lung volumes. No large effusion or pneumothorax. Degenerative changes of the thoracic spine. Upper abdomen normal. IMPRESSION: 1. Apparent cardiomegaly with volume overload and mild congestive change suggested. No darrell pulmona ry edema at this time. 2. Mildly low lung volumes with hypoventilatory changes. Electronically signed by: Juan Pablo Reeves M.D. 03/17/2019 11:11 AM
[2019-03-17] MEDS ORDERED: PROMETHAZINE 6.25 MG/50.25 ML BAG IV STA (11:21)
--- NOTE | 2019-03-17 12:00 | History & Physical Report ---
Date of Service March 17, 2019 Assessment & Plan (1) CVA (cerebral vascular accident): Patient will be admitted to the ICU. Will follow CVA protocol. Patient received TPA in the ER. Consult neurology. Neurochecks per protocol. Allow permissive hypertension for first 24 hours. Consult heating unit installer. Stroke work-up per protocol. Check lipid profile in a.m. Consult speech therapy for Swallow evaluation. Consult PT OT. Consult case management discharge planning. Present on Admission?: Yes (2) Left arm weakness: Present on Admission?: Yes (3) CAD (coronary artery disease): (4) HTN (hypertension): Allow permissive hypertension for 1st 24 hours. Monitor blood pressure closely. (5) Dissection of vertebral artery: Check MRI/MRA in a.m. (6) Nausea & vomiting: Patient received Zofran in the ER (7) Headache: Headache currently improving. Received fentanyl by EMS. Present on Admission?: No (8) Dyslipidemia: Continue statins. Check fasting lipid profile in a.m. (9) Tobacco abuse disorder: Smoking cessation advised. Patient does not want to use nicotine patch for now. Present on Admission?: Yes History of Present Illness Primary Care Provider: Coy Wyatt The patient is a 43-year-old male who presented to the ER with the complaints of syncope. Patient was complaining of headache since last night. This morning when he woke up he was complaining of dizziness which he describes as lightheadedness. He went to work along with his son at [employer]. He remained dizzy at work and all of a sudden he had a syncopal episode and he fell down. The son noticed some slurring of the speech and left-sided weakness and left-sided facial droop. EMS was called and patient brought to the ER. Telemetry stroke was consulted and patient was felt to be a candidate for TPA. Patient received TPA in the ER. The CT head and CT angiogram was done and results noted. Patient will be admitted to the ICU for further evaluation and monitoring. His headache and left-sided weakness and left facial droop has started to improve now. Allergies Allergy/AdvReac Type Severity Reaction Status Date / Time No Known Allergies Allergy Unverified 03/17/19 11:13 Home Medications Home Medications Medication Instructions Recorded Confirmed Type atenolol 100 mg tablet 100 mg PO DAILY #90 tab 03/09/19 03/17/19 History atorvastatin 80 mg tablet 80 mg PO DAILY #90 tab 03/09/19 03/17/19 History clopidogrel 75 mg tablet 75 mg PO DAILY #90 tab 03/09/19 03/17/19 History lisinopril 5 mg tablet 5 mg PO DAILY #90 tab 03/09/19 03/17/19 History aspirin [Aspir-81] 81 mg PO DAILY 03/17/19 03/17/19 History Past Med/Surg History Medical History Right shoulder strain (Resolved) Acute [place] inferior lateral first episode care (Resolved) Lumbar radiculopathy (Acute) Coronary atherosclerosis HLD (hyperlipidemia) HTN (hypertension) Kidney stones Surgical History History of PTCA S/P cardiac cath Family History Other Heart disease Hypertension Social History marital status: Current Living Situation: Family current occupational status: employed Feels Safe at Home: Yes Smoking Status: Unknown if ever smoked Review of Systems Review of Systems: All systems reviewed & are unremarkable except as noted in HPI & below Neurologic: + localized weakness, + dizziness, + syncope, + headache(s) and + abnormal speech Physical Exam Constitutional: WD/WN, vitals as above Eyes: PERRL, conjunctivae normal, anicteric sclerae ENMT: external ear and nose normal, oropharynx normal Neck: trachea midline, no thyromegaly Respiratory: normal respiratory effort, lungs clear to auscultation Cardiovascular: RRR, no murmur, no edema Chest (Breasts): normal inspection/palpation of breasts Gastrointestinal (Abdomen): normal bowel sounds, soft, nontender, no hepatosplenomegaly Skin: no rashes, warm and dry Neurologic: patellar DTR's 2+ bilat, sensation intact normal touch/pain/proprioception, CN's II-XI intact bilaterally (mild left facial palsy+), deep tendon reflexes 2+ bilaterally and + focal motor deficit (left UL power 4/5) Cranial Nerves: PERRL, EOM intact bilaterally, tongue midline, normal hearing and no nystagmus Psychiatric: A+Ox3, euthymic affect Genitourinary: no testicular masses, no penis abnormality Lymphatic: no cervical or axillary lymphadenopathy Results & Data Vital Signs (Past 12 Hours) Vital Signs Temp Pulse Pulse Resp BP BP Pulse Ox 03/17/19 11:40 63 17 131/87 99 03/17/19 11:30 65 18 124/92 99 03/17/19 11:20 69 13 127/85 100 03/17/19 11:10 68 21 134/86 98 03/17/19 11:00 73 20 135/83 98 03/17/19 10:51 80 68 45 H 135/88 135/88 97 03/17/19 10:50 70 14 97 03/17/19 10:44 75 18 128/81 03/17/19 10:40 82 15 145/94 H 03/17/19 10:31 89 34 H 142/82 H 97 03/17/19 09:58 98.4 F 92 H 16 142/82 H 97 Laboratory Results 03/17/19 10:32 03/17/19 10:[address] angio neck with con CLINICAL HISTORY: 43 years-old Male presenting with stroke alert, unresponsive, weakness. TECHNIQUE: Multidetector CT angiography of the neck was performed after the adm inistration of intravenous contrast. 3-D volumetric and/or maximum intensity projection (MIP) images were subsequently reconstructed for review. IV contrast: 119 mL of Optiray 320. One or more dose lowering techniques were used consistent with the principles of ALARA (as low as reasonably achievable), including automatic exposure control, mA or kV adjustment to individual patient size, and/or use of iterative reconstruction. Stenosis measurements were based on NASCET-like criteria (distal lumen diameter as the denominator for stenosis measurement). COMPARISON: None. CT DOSE (mGy.cm): The estimated cumulative dose is 1162.85 mGy.cm. FINDINGS: Seismic Engineer topogram: Unremarkable. Aortic arch: Normal three-vessel aortic arch with patent origins of the branch vessels. Innominate artery: Patent. Right subclavian artery: Patent. Right common carotid artery: Patent. Right internal and external carotid arteries: Right carotid bifurcation patent. Right internal and external carotid arteries widely patent. Left common carotid artery: Patent. Left internal and external carotid arteries: Left carotid bifurcation patent. Left internal and external carotid arteries widely patent. Left subclavian artery: Patent. Vertebral arteries: Left dominant vertebral artery. Origin and course of the left vertebral artery patent. Nonopacification of the origin and proximal course of the right vertebral artery, which is subsequently reconstituted at the level of C6. The artery is again not opacified in the foramen transversarium at the level of C4 with subsequent reconstitution. Other: Limited intracranial evaluation within normal limits. Soft tissues of the neck normal allowing for the phase of contrast. Normal cervical spine. Mosaic attenuation of the lung apices. IMPRESSION: 1. Intermittent nonopacification of the right vertebral artery including the origin and proximal course to the level of C6. Intermittent reconstitution of flow from C6 to C5 with nonopacification at the level of C4 and subsequent reconstitution above this level. This is concerning for acute vascular injury, namely multifocal occlusion/dissection. Alternatively, intermittent flow within the right vertebral artery could relate to the fact that it is the nondominant vertebral artery with slower flow. 2. Notably, the posterior circulation relies on a left dominant vertebral artery. 3. Normal anterior circulation. 4. Small airways disease versus congestive change at the lung apices. The report will be called/faxed according to standard departmental protocol. CT head/brain wo con CLINICAL HISTORY: Unresponsive patient. Possible acute stroke. COMPARISON STUDY: No previous studies for comparison. TECHNIQUE: Axial CT of the brain is performed from the vertex to the skull base. IV contrast was not administered for this examination. A dose lowering technique was utilized adhering to the principles of ALARA. CT DOSE: FINDINGS: No intra or extra-axial mass lesions are visualized. There is no CT evidence of acute cortical infarction. There is no evidence of midline shift. There is no acute hemorrhage. No calvarial fractures are visualized. There are minor white matter hypodensities likely on a small vessel basis. There is a left cerebellar hypodensity versus artifact. There is no evidence of pathologic ventricular dilatation. There is partial opacification of multiple ethmoid air cells. IMPRESSION: 1. No evidence of acute hemorrhage 2. Left cerebellar hypodensity versus artifact. If neurological symptoms persist, an MRI of the brain should be considered in follow-up TECHNIQUE: CT angiography of the head was performed in a dynamic helical fashion during intravenous administration of 119 cc of Optiray 320. MIP imaging was performed. A dose lowering technique was utilized adhering to the principles of ALARA. CT DOSE: COMPARISON STUDY: No previous studies for comparison. FINDINGS: There are no lesion suspicious for aneurysm. There are no major intracranial branch occlusions. The dural venous sinuses appear patent. IMPRESSION: Unremarkable CT angiography of the brain. Code Status & VTE Plan Code Status full code VTE Prophylaxis Plan VTE Prophylaxis will be ordered: Yes PG Care Time/CCT Total # of Minutes Spent Total Time Spent with Patient: Total time spent is greater than 50% in coordination of care (as documented) at patient's floor/unit and/or counseling patient: (1) Headache Headache chronicity pattern: unspecified pattern Headache type: unspecified Intractability: intractable Qualified Code(s): R51 - Headache (2) Nausea & vomiting Vomiting Intractability: unspecified Vomiting type: unspecified Qualified Code(s): R11.2 - Nausea with vomiting, unspecified
[2019-03-17] MEDS ORDERED: ICU PROTOCOL FOR HYPERGLYCEMIA PRN (12:58)
[2019-03-17] MEDS ORDERED: SODIUM CHLORIDE 0.9% 1000ML 1,000 ML IV SCH (12:58)
[2019-03-17] MEDS ORDERED: PHARMACIST DISCHARGE MED REC CONSULT PRN (13:00)
--- NOTE | 2019-03-17 13:16 | Critical Care Consultation ---
Date of Consultation March 17, 2019 Assessment & Plan (1) Admitted to intensive care unit: Reason Critically Ill: Stroke alert for pt found to have intermittent non- opacification of the right vertebral artery concerning for occlusion/dissection s/p tPA administration in ED NEURO ICU CAM: NEGATIVE Head CT/CTA- unremarkable Neck CTA: intermittent non-opacification of the right vertebral artery concerning for occlusion/dissection NIHSS 4 on admit, 2 at time of ICU admission Patient received tPA in the ER Repeat imaging at 24 hrs. 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 Hold ASA 81mg and Clopidogrel 75 mg PULM No acute concerns ABD/GI SLC for formal swallow eval /RENAL No acute concerns Replete lytes as needed ENDO ICU Hyperglycemia Protocol. A1C in AM TSH WNL ID No acute concerns for infectious etiology Cont trend fever curve HEME H/H Stable. No concern for acute bleeding s/p tPA Daily CBC's LINES: PIV x2 DVT Prophylaxis- SCD's FULL CODE DISPO: ICU. PT/OT Pending Supervising Physician Co-Signing Physician Notes Patient seen and examined. Electronic medical record reviewed. Discussed with neurologist and admitting hospitalist service. Patient is a 43-year-old male who had a syncopal event today. He had an elevated NIH with some left arm and leg weakness and numbness and tingling. He was seen in the emergency room. CT scan demonstrated a questionable opacification of a basilar artery. Tele-stroke consultation was obtained it was recommended the patient received TPA. This was administered in the ER. He was admitted to the ICU for monitoring post TPA administration. I assessed the patient immediately on arrival to the intensive care unit. He currently has an NIH of about 2 and is complaining of some left hand numbness and tingling. I did discuss with the hospitalist prior to admitting the patient to the ICU regarding stroke in a young patient in a posterior circulation distribution that the patient would likely benefit from an angioplasty he states he discussed this with the tele-stroke neurologist and they did not recommend angios or evaluation at a tertiary care care center, merely admitting the patient to the ICU and monitoring. I was able to discuss the case with the neurologist who reviewed the films. She feels like this may be subacute or chronic occlusion of the basilar artery and would benefit from cerebral angiography. She was gracious enough to contact the neuro interventionalist at [facility] who has accepted the patient in transfer for consideration of cerebral angiography. Of note the patient's blood pressure control is been adequate throughout his ICU stay. The hospitalist is currently coordinating transfer for higher level of care and cerebral angiography. History of Present Illness Attending Physician: Luis Knott MD History of Present Illness 43-year-old male with PMH HLD, HTN, CAD, Tobacco Abuse , and inferolateral KS, who presented to the ER with the complaints of syncope. Patient was complaining of headache since last night. This morning when he woke up he was complaining of dizziness which he describes as lightheadedness. He went to work along with his son at [employer]. He remained dizzy at work and all of a sudden he had a syncopal episode and he fell down. The son noticed some slurring of the speech and left-sided weakness and left-sided facial droop. EMS was called and patient brought to the ER. Telemetry stroke was consulted and patient was felt to be a candidate for TPA. Patient received TPA in the ER. CT head-No evidence of acute hemorrhage CT angiogram -Unremarkable CT angiography of the brain Neck CTA- Intermittent nonopacification of the right vertebral artery including the origin and proximal course to the level of C6. The posterior circulation relies on a left dominant vertebral artery. Normal anterior circulation. Patient admitted to the ICU for further evaluation and monitoring. At time of evaluation, his headache and left-sided weakness and left facial droop have improved. Allergies Allergy/AdvReac Type Severity Reaction Status Date / Time No Known Allergies Allergy Unverified 03/17/19 11:13 Home Medications Home Medications Medication Instructions Recorded Confirmed Type atenolol 100 mg tablet 100 mg PO DAILY #90 tab 03/09/19 03/17/19 History atorvastatin 80 mg tablet 80 mg PO DAILY #90 tab 03/09/19 03/17/19 History clopidogrel 75 mg tablet 75 mg PO DAILY #90 tab 03/09/19 03/17/19 History lisinopril 5 mg tablet 5 mg PO DAILY #90 tab 03/09/19 03/17/19 History aspirin [Aspir-81] 81 mg PO DAILY 03/17/19 03/17/19 History Patient History Medical History Right shoulder strain (Resolved) Acute [place] inferior lateral first episode care (Resolved) Lumbar radiculopathy (Acute) Coronary atherosclerosis HLD (hyperlipidemia) HTN (hypertension) Kidney stones Surgical History History of PTCA S/P cardiac cath Family History Other Heart disease Hypertension Social History Preferred Language: Russian Communication Ability: Effective Aging Box Hand Required: No Beliefs That Will Affect Care: None marital status: Current Living Situation: Spouse current occupational status: employed Feels Safe at Home: Yes Smoking Status: Current every day smoker Tobacco Type: cigarettes ; Second Hand Exposure: Yes ; Hx Alcohol Use: Yes Hx Substance Use: No Review of Systems Review of Systems: All systems reviewed & are unremarkable except as noted in HPI & below Physical Exam Constitutional: WD/WN, vitals as above Eyes: PERRL, conjunctivae normal, anicteric sclerae ENMT: external ear and nose normal, oropharynx normal Respiratory: normal respiratory effort, lungs clear to auscultation Cardiovascular: RRR, no murmur, no edema Gastrointestinal (Abdomen): normal bowel sounds, soft, nontender, no hepatosplenomegaly Skin: no rashes, warm and dry Neurologic: CN's II-XI intact bilaterally Mild L UE Weakness compared to R UE Psychiatric: A+Ox3, euthymic affect Results & Data Vital Signs (Past 12 Hours) Vital Signs Temp Pulse Pulse Resp BP BP Pulse Ox 03/17/19 12:51 36.8 C 62 20 131/85 98 03/17/19 12:45 99 H 20 131/85 03/17/19 12:39 132/87 03/17/19 12:30 62 17 111/78 99 03/17/19 12:20 66 18 121/79 100 03/17/19 12:10 60 18 115/80 99 03/17/19 12:00 63 20 116/79 99 03/17/19 11:50 62 18 119/80 99 03/17/19 11:40 63 17 131/87 99 03/17/19 11:30 65 18 124/92 99 03/17/19 11:20 69 13 127/85 100 03/17/19 11:10 68 21 134/86 98 03/17/19 11:00 73 20 135/83 98 03/17/19 10:51 80 68 45 H 135/88 135/88 97 03/17/19 10:50 70 14 97 03/17/19 10:44 75 18 128/81 03/17/19 10:40 82 15 145/94 H 03/17/19 10:31 89 34 H 142/82 H 97 03/17/19 09:58 36.9 C 92 H 16 142/82 H 97 Laboratory Results Laboratory Results - last 24 hr 03/17/19 03/17/19 03/17/19 10:32 10:32 10:32 WBC 9.51 RBC 4.29 L Hgb 12.2 L POC Hgb Hct 36.0 L POC Hct MCV 83.9 MCH 28.4 MCHC 33.9 RDW Std Deviation 41.1 RDW Coeff of Jerzy 13.7 Plt Count 196 MPV 10.3 Immature Gran % (Auto) 0.3 Neut % (Auto) 56.6 Lymph % (Auto) 34.2 Hoke % (Auto) 6.9 Eos % (Auto) 1.8 Baso % (Auto) 0.2 Immature Gran # (Auto) 0.03 H Neut # (Auto) 5.38 Lymph # (Auto) 3.25 Hoke # (Auto) 0.66 H Eos # (Auto) 0.17 Baso # (Auto) 0.02 PT 11.1 POC INR INR 1.1 APTT 24.2 PTT Ratio 0.9 POC Sodium Sodium 135 L POC Potassium Potassium 3.3 L POC Chloride Chloride 104 Carbon Dioxide 20 L POC Total CO2 Anion Gap 11.0 POC Anion Gap POC BUN BUN 12 Creatinine 1.07 POC Creatinine Est Cr Clr Drug Dosing 88.1 Est GFR ( Amer) 97.3 Est GFR (Non-Af Amer) 84.0 BUN/Creatinine Ratio 11.4 Glucose 149 H POC Glucose POC Glucose (other) Calcium 8.2 L POC Ioniz Calcium Michi Magnesium 2.0 Total Bilirubin 0.5 AST 22 ALT 27 Alkaline Phosphatase 78 Troponin I < 0.015 Total Protein 6.0 L Albumin 3.5 Globulin 2.5 Albumin/Globulin Ratio 1.4 Nasal Screen MRSA (PCR) Blood Type Antibody Screen 03/17/19 03/17/19 03/17/19 10:32 10:36 10:36 WBC RBC Hgb POC Hgb Hct POC Hct MCV MCH MCHC RDW Std Deviation RDW Coeff of Jerzy Plt Count MPV Immature Gran % (Auto) Neut % (Auto) Lymph % (Auto) Hoke % (Auto) Eos % (Auto) Baso % (Auto) Immature Gran # (Auto) Neut # (Auto) Lymph # (Auto) Hoke # (Auto) Eos # (Auto) Baso # (Auto) PT POC INR 1.0 INR APTT PTT Ratio POC Sodium Sodium POC Potassium Potassium POC Chloride Chloride Carbon Dioxide POC Total CO2 Anion Gap POC Anion Gap POC BUN BUN Creatinine POC Creatinine Est Cr Clr Drug Dosing Est GFR ( Amer) Est GFR (Non-Af Amer) BUN/Creatinine Ratio Glucose POC Glucose 150 H POC Glucose (other) Calcium POC Ioniz Calcium Michi Magnesium Total Bilirubin AST ALT Alkaline Phosphatase Troponin I Total Protein Albumin Globulin Albumin/Globulin Ratio Nasal Screen MRSA (PCR) Blood Type A Positive Antibody Screen NEGATIVE 03/17/19 03/17/19 10:39 13:00 WBC RBC Hgb POC Hgb 11.9 L Hct POC Hct 35 L MCV MCH MCHC RDW Std Deviation RDW Coeff of Jerzy Plt Count MPV Immature Gran % (Auto) Neut % (Auto) Lymph % (Auto) Hoke % (Auto) Eos % (Auto) Baso % (Auto) Immature Gran # (Auto) Neut # (Auto) Lymph # (Auto) Hoke # (Auto) Eos # (Auto) Baso # (Auto) PT POC INR INR APTT PTT Ratio POC Sodium 135 Sodium POC Potassium 3.3 Potassium POC Chloride 102 Chloride Carbon Dioxide POC Total CO2 20 L Anion Gap POC Anion Gap 18.0 POC BUN 11 BUN Creatinine POC Creatinine 0.9 Est Cr Clr Drug Dosing Est GFR ( Amer) Est GFR (Non-Af Amer) BUN/Creatinine Ratio Glucose POC Glucose POC Glucose (other) 147 H Calcium POC Ioniz Calcium Michi 1.08 L Magnesium Total Bilirubin AST ALT Alkaline Phosphatase Troponin I Total Protein Albumin Globulin Albumin/Globulin Ratio Nasal Screen MRSA (PCR) Pending Blood Type Antibody Screen Medications Administered Current Inpatient Medications Atenolol (Tenormin) 100 mg PO DAILY [facility] Stop: 04/17/19 08:59 Atorvastatin Calcium (Lipitor) 80 mg PO DAILY [facility] Stop: 04/17/19 08:59 Sodium Chloride (Nss 1000ml) 1,000 mls @ 50 mls/hr IV .Q20H [facility] Stop: 04/16/19 10:14 Last Admin: 03/17/19 10:30 Dose: 50 mls/hr Documented by: Sodium Chloride (Nss 1000ml) 1,000 mls @ 60 mls/hr IV .[id number] [facility] Stop: 04/16/19 12:57 Ioversol (Optiray 320 125ml) 119 ml IV ONCE PRN PRN Reason: Interaction Checking Stop: 03/21/19 10:24 Last Admin: 03/17/19 10:25 Dose: 119 ml Documented by: Lisinopril (Zestril) 5 mg PO DAILY [facility] Stop: 04/17/19 08:59 Miscellaneous (Icu Protocol For Hyperglycemia) 1 ea N/A PRN PRN; Protocol PRN Reason: Hyperglycemia Protocol Stop: 03/19/19 12:57 Miscellaneous Information (Pharmacist Discharge Med Rec Consult) 1 ea N/A UD PRN PRN Reason: Consult Stop: 04/16/19 12:59 PG Care Time/CCT Total # of Minutes Spent Total Time Spent with Patient: Total time spent is greater than 50% in coordination of care (as documented) at patient's floor/unit and/or counseling patient: 45 minutes critical care time evaluating managing patient and coordinate in care Resident Activity Tracking Resident Involvement: Resident Care Provided Care Provided: Adult Hospital Medicine
[2019-03-17 16:32] VITALS: TEMP 97.9
--- NOTE | 2019-03-17 17:00 | Discharge Summary ---
Date of Service March 17, 2019 Admission HPI Per Admitting Provider The patient is a 43-year-old male who presented to the ER with the complaints of syncope. Patient was complaining of headache since last night. This morning when he woke up he was complaining of dizziness which he describes as lightheadedness. He went to work along with his son at [employer]. He remained dizzy at work and all of a sudden he had a syncopal episode and he fell down. The son noticed some slurring of the speech and left-sided weakness and left-sided facial droop. EMS was called and patient brought to the ER. Telemetry stroke was consulted and patient was felt to be a candidate for TPA. Patient received TPA in the ER. The CT head and CT angiogram was done and results noted. Patient will be admitted to the ICU for further evaluation and monitoring. His headache and left-sided weakness and left facial droop has started to improve now. Admission Exam Per Admitting Provider Constitutional: WD/WN, vitals as above Eyes: PERRL, conjunctivae normal, anicteric sclerae ENMT: external ear and nose normal, oropharynx normal Neck: trachea midline, no thyromegaly Respiratory: normal respiratory effort, lungs clear to auscultation Cardiovascular: RRR, no murmur, no edema Chest (Breasts): normal inspection/palpation of breasts Gastrointestinal (Abdomen): normal bowel sounds, soft, nontender, no hepatosplenomegaly Skin: no rashes, warm and dry Neurologic: patellar DTR's 2+ bilat, sensation intact normal touch/pain/proprioception, CN's II-XI intact bilaterally (mild left facial pal sy+), deep tendon reflexes 2+ bilaterally and + focal motor deficit (left UL power 4/5) Cranial Nerves: PERRL, EOM intact bilaterally, tongue midline, normal hearing and no nystagmus Psychiatric: A+Ox3, euthymic affect Genitourinary: no testicular masses, no penis abnormality Lymphatic: no cervical or axillary lymphadenopathy Principal Diagnosis Acute CVA with left upper extremity weakness Discharge Exam GENERAL : No acute distress EYES: No icterus, gaze conjugate. Pupils equal round and reactive to light NOSE: No evidence of epistaxis MOUTH: No lesions or candidiasis. No facial droop. Tongue is midline. NECK: Supple. No appreciation carotid bruits LUNGS: CTA B/L, no wheezes, rales or rhonchi. Good respiratory effort HEART: Regular, rate controlled. No murmurs gallops or rubs appreciated ABDOMEN: Soft, NT, ND, BS Present. EXTREMITIES: No LE edema, pedal pulses intact. NEURO: A&OX3. Negative pronator drift. Strength is equal and appropriate bilateral upper extremities. Strength is equal and appropriate bilateral lower extremities. Toes are downgoing bilaterally. Deep tendon reflexes 2/4 bicep, brachioradialis, patellar tendons. No slurred speech. No memory lapse. Discharge Data Allergies Allergy/AdvReac Type Severity Reaction Status Date / Time No Known Allergies Allergy Unverified 03/17/19 11:13 Consultations 03/17/19 11:13 ED Decision to Admit Stat 03/17/19 12:58 Consult Case Management - Discharge Planning Routine Consult Case Management - Discharge Planning Routine Consult Inventory Specialist Manager Routine Consult Neurology Routine 03/17/19 15:58 Burn CD for patient Stat Ordered Studies 03/17/19 10:06 CT angio head w con Stat CT angio neck with con Stat CT head/brain wo con Stat CT Impression includes: Intermittent nonopacification of the right vertebral artery including the origin and proximal course to the level of C6. Intermittent reconstitution of flow from C6 to C5 with nonopacification at the level of C4 and subsequent reconstitution above this level. This is concerning for acute vascular injury, namely multifocal occlusion/dissection. Alternatively, intermittent flow within the right vertebral artery could relate to the fact that it is the nondominant vertebral artery with slower flow. Hospital Course (1) CVA (cerebral vascular accident): (1) CVA (cerebral vascular accident): Patient will be admitted to the ICU. Will follow CVA protocol. Patient received TPA in the ER. Patient seen by neurology. Recommend transfer to [facility] for angiogram and possible intervention Patient accepted to [facility]. Awaiting transport Neurochecks per protocol. Allow permissive hypertension for first 24 hours. Consult charging machine operator. Stroke work-up per protocol. Check lipid profile in a.m. Rehab consults including speech-language pathology for swallow eval and PT/OT canceled secondary to plan for patient be transferred (2) Left arm weakness: Present on Admission?: Yes Left arm weakness resolved after administration of TPA. Physical examination shows prior to transfer was negative for focal neurological deficits. (3) CAD (coronary artery disease): (4) HTN (hypertension): Allow permissive hypertension for 1st 24 hours. Monitor blood pressure closely. (5) Dissection of vertebral artery: Transfer to [facility] for possible intervention upon advice of neurology (6) Nausea & vomiting: Patient received Zofran in the ER Resolved (7) Headache: Headache currently improving. Received fentanyl by EMS. Headache resolved (8) Dyslipidemia: Continue statins at home dose (9) Tobacco abuse disorder: Smoking cessation advised. Patient does not want to use nicotine patch for now. Total Time Total Time Spent Total Time Spent (In Minutes): 35 Total Time Includes: Examination of the Patient, Discharge Planning, Communication With Other Providers and Other (Arrange transfer to [facility]) Discharge Plan Discharge Items Patient Disposition: Transfer Acute Care Hospital Reason For Visit: CVA, SP TPA Discharge Diagnosis: CVA with posterior circulation dissection versus chronic thrombolic disease Activity: As commented below Activity Comment: Await disposition at accepting facility Lifting: None Exercise/Sports: None Non-emergency contact: Primary Care Provider Call non-emergency contact if: your temperature is above 101.5 Follow-up/Referrals: Coy Wyatt [Primary Care Provider] - Diet: Heart Healthy Addtl Attending Provider Instructions: None. Transfer to [facility] Pending Studies at Discharge: No Stand-Alone Forms: My [employer] Skilled Items Patient informed of condition?: Yes DNR: No Discharge Level of Care: Other Communicable Disease: No Discharge Prognosis: Improving Lines: Peripheral IV Urinary Catheter: No Medications and DC Order Prescriptions: Continued lisinopril 5 mg tablet 5 mg PO DAILY Qty: 90 RF: 0 atorvastatin 80 mg tablet 80 mg PO DAILY Qty: 90 RF: 0 atenolol 100 mg tablet 100 mg PO DAILY Qty: 90 RF: 0 clopidogrel 75 mg tablet 75 mg PO DAILY Qty: 90 RF: 0 aspirin [Aspir-81] 81 mg Tablet,Delayed Release (Dr/Ec) 81 mg PO DAILY RF: 0 Discharge Orders: Discharge Order (Routine); Ordered 03/17/19 Ordered By: Jameel Stringer Admission Data Admit Date/Time: 03/17/19 11:47 Attending Provider: Luis Knott Admit Provider: Luis Knott Primary Care Provider: Coy Wyatt Other Providers: Luis Knott ; Martinez Hurley ; Maryanne Hernandez
[2019-03-17] MEDS ORDERED: STROKE PATIENT DISCHARGE STA (17:30)
[2019-03-17 18:05] VITALS: BP 132/84; PULSE 62; O2SAT 96
--- NOTE | 2019-03-17 20:54 | Neurology Consultation ---
Date of Consultation March 17, 2019 Assessment & Plan (1) Stroke: Addison Powers is a 43 yo man w/PMH of HTN, HLD, CAD s/p 2 stents, and tobacco abuse who p/t [facility] after acute onset of L-sided weakness, facial droop and dysarthria, found to have a right vert occlusion vs dissection and new onset stroke. CTH showed no hemorrhage, hypodensity in the left cerebellum. CTA showed a right vertebral artery occlusion that could be 2/2 dissection vs acute thrombus vs chronic occlusion. There did appear to be a string sign on viewing of available imaging suggesting minimal flow through the vessel. Symptom localization: no overt cranial nerve abnormalities, but in setting of LoC, clot likely went up the basilar and traveled to the right BASKET FILLER causing symptoms in the right thalamus Stroke mechanism: most likely vessel to vessel embolus from possible chronic vs acute occlusion, less likely dissection # Stroke 2/2 right vertebral artery occlusion: - given his unstable lesion in the right vertebral artery, discussed with patient and family importance of having diagnostic angiogram performed with possible intervention depending on the findings. Family and patient in agreemetn for transfer to outside facility for this. Call placed to neurointerventionalist at [facility] (pt's choice for having procedure completed) and case discussed with Dr Zehra Cuellar who accepted patient for transfer. - majority of basic stroke workup has already been completed prior to transfer: A1c pending, LDL 72, TTE performed (final read pending), hypercoag panel sent (pending). He will additionally need an MRI for stroke burden and telemetry with discussion of loop monitor vs 30 day monitor for Afib monitoring on discharge from outside facility. - he remained NPO and on tPA precautions prior to transfer - Should be counseled concerning stroke education, smoking cessation, healthy diet, physical activity, weight loss - Follow up with PCP for assistance with outpatient goals (BP <135/85, LDL <70, A1c <7) - Follow up in neurology clinic in 6-8 weeks (if intervention performed, will likely have follow up at [facility]) Thank you for this interesting consult. Plan of care was discussed with primary team, family, and accepting facility provider. A total of 110 minutes of critical care time was performed with more than 50% for the counseling of the patient/family and direction of care, including phone call with the accepting provider and a family meeting to discuss treatment options moving forward. 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 MANAGER COMPLIANCE ~9:38am while at work with his son, he had a syncopal episode and fell to the ground on his left side. Son reports that he was not confused when he woke up, no convulsive activity but did have a new left facial droop and left-sided weakness. EMS called and pt brought to [facility]. CTH showed no hemorrhage, hypodensity in left cerebellum. CTA per my read shows hypoplastic right vert, R vert occlusion vs dissection with large intraluminal thrombus, and no other LVO or high grade stenosis. Stroke alert activated and tPA given at 10:54am. He was admitted to the ICU for post-tPA care. On examination this afternoon, he continues to have a left facial droop and weakness of his left side (NIHSS 3, 1 for FP, 1 for LUE weakness, 1 for LLE weakness). He reports that he started to have a headache last night that persisted into this morning before he had the syncopal event. He did take several ibuprofen for the headache this morning. Denies any neck pain, recent neck injury (no chiropractors or roller coaster rides), nausea, vomiting, numbness, tingling. He reports taking his aspirin and plavix without any missed doses. Labs at admission notable glucose 100, INR 1.1, LDL 72, TSH WNL, Plts 196. Stroke Workflow: CT ASPECT: 10 Time IV tpa is given: 10:54am Patient Features: Admission NIHSS: Admission Modified Andres Scale: 0 Time patient last seen well: 9:38 am Wake up stroke: No Intubation status: Not intubated Stroke Risk Factors: Hypertension: Y Hyperlipidemia: Y Atrial Fib: N Tobacco: Y Diabetes: N Taking NOAC or warfarin: N, on aspirin/plavix Allergies Allergy/AdvReac Type Severity Reaction Status Date / Time No Known Allergies Allergy Unverified 03/17/19 11:13 Home Medications Home Medications Medication Instructions Recorded Confirmed Type atenolol 100 mg tablet 100 mg PO DAILY #90 tab 03/09/19 03/17/19 History atorvastatin 80 mg tablet 80 mg PO DAILY #90 tab 03/09/19 03/17/19 History clopidogrel 75 mg tablet 75 mg PO DAILY #90 tab 03/09/19 03/17/19 History lisinopril 5 mg tablet 5 mg PO DAILY #90 tab 03/09/19 03/17/19 History aspirin [Aspir-81] 81 mg PO DAILY 03/17/19 03/17/19 History Patient History Medical History Right shoulder strain (Resolved) Acute [facility] inferior lateral first episode care (Resolved) Lumbar radiculopathy (Acute) Coronary atherosclerosis HLD (hyperlipidemia) HTN (hypertension) Kidney stones Surgical History History of PTCA S/P cardiac cath Family History Other Heart disease Hypertension Social History Preferred Language: Luxembourgish Communication Ability: Effective Med Care Manager Required: No Beliefs That Will Affect Care: None marital status: Current Living Situation: Spouse current occupational status: employed Feels Safe at Home: Yes Smoking Status: Current every day smoker Tobacco Type: cigarettes ; Second Hand Exposure: Yes ; Hx Alcohol Use: Yes Hx Substance Use: No Review of Systems Review of Systems: All systems reviewed & are unremarkable except as noted in HPI & below Physical Exam Physical Exam: General Exam: GEN: NAD, lying down in examination bed. HEENT: No conjunctival injection, no rhinorrhea, moist mucus membranes. CV: RRR on monitor, no significant edema. PULM: Nonlabored respirations on room air. Neuro Exam: MS: Awake and Alert. Oriented to person, place, and date. Speech fluent and appropriate without dysarthria or paraphasic errors. Language intact including naming, comprehension, repetition. Cognition and memory grossly intact. Attention intact. No neglect. CN: Visual montilla full. No extinction to double simultaneous stimuli. Normal fundoscopic exam. PERRLA OU. EOMI with end-gaze nystagmus in direction of gaze. Facial sensation intact to LT. L facial droop. Hearing intact to conversation. Uvula midline with symmetric palatal elevation. Shoulder shrug normal. Tongue midline. MOTOR: Normal bulk and tone. + pronator drift on the left. RUE strength 5/5 at deltoids, biceps, triceps, wrist flexors and extensors, and finger flexors. RLE strength 5/5 at iliopsoas, hamstrings, quadriceps, tibialis anterior, and gastrocnemius. LUE strength 4-/5 at deltoids, biceps, triceps, wrist flexors and extensors. LLE strength 4+/5 at iliopsoas, hamstrings, quadriceps, 5-/5 at tibialis anterior and gastrocnemius REFLEXES: 2+ at biceps, triceps, brachioradialis, 1+ patella, and trace Achilles bilaterally. Flexor plantar responses bilaterally. SENSORY: Intact to LT/vibration/temperature throughout, no extinction to double simultaneous stimuli. COORDINATION: Mild dysmetria on L [id number] bilaterally. Normal Sharad bilaterally. GAIT: Deferred due to post tPA protocol. NIH STROKE SCALE 1A. Level of Consciousness (0-3) = 0 1B. LOC Questions (0-2) = 0 1C. LOC Commands (0-2) = 0 2. Best Horizontal Gaze (0-2) = 0 3. Visual Montilla (0-3) = 0 4. Facial Palsy (0-3) = 1 5. Motor Arm Right (0-4) = 0 Left (0-4) = 1 6. Motor Leg Right (0-4) = 0 Left (0-4) = 1 7. Limb Ataxia (0-2) = 1 8. Sensory (0-2) = 0 9. Best Language (0-3) = 0 10. Dysarthria (0-2) = 0 11. Extinction and Inattention (0-2) = 0 NIHSS TOTAL = 3 Results & Data Vital Signs (Past 12 Hours) Vital Signs Temp Pulse Pulse Resp BP BP Pulse Ox 03/17/19 18:35 36.6 C 62 20 132/84 96 03/17/19 18:30 36.9 C 58 L 20 123/79 96 03/17/19 17:30 36.6 C 62 20 132/84 96 03/17/19 17:00 36.6 C 60 20 125/77 97 03/17/19 16:30 64 18 130/86 97 03/17/19 16:00 36.6 C 64 60 20 130/86 97 03/17/19 15:30 36.8 C 63 20 123/83 96 03/17/19 15:00 36.8 C 68 20 118/72 96 03/17/19 14:30 36.6 C 70 20 116/73 98 03/17/19 14:00 36.6 C 68 20 113/68 95 03/17/19 13:30 36.9 C 68 20 123/66 97 03/17/19 12:58 36.8 C 65 20 108/78 95 03/17/19 12:51 36.8 C 62 20 131/85 98 03/17/19 12:45 99 H 20 131/85 03/17/19 12:43 99 H 03/17/19 12:39 132/87 03/17/19 12:30 62 17 111/78 99 03/17/19 12:20 66 18 121/79 100 03/17/19 12:10 60 18 115/80 99 03/17/19 12:00 63 20 116/79 99 03/17/19 11:50 62 18 119/80 99 03/17/19 11:40 63 17 131/87 99 03/17/19 11:30 65 18 124/92 99 03/17/19 11:20 69 13 127/85 100 03/17/19 11:10 68 21 134/86 98 03/17/19 11:00 73 20 135/83 98 03/17/19 10:51 80 68 45 H 135/88 135/88 97 03/17/19 10:50 70 14 97 03/17/19 10:44 75 18 128/81 03/17/19 10:40 82 15 145/94 H 03/17/19 10:31 89 34 H 142/82 H 97 03/17/19 09:58 36.9 C 92 H 16 142/82 H 97 Laboratory Results 03/17/19 10:32 03/17/19 10:[address] angio neck with con CLINICAL HISTORY: 43 years-old Male presenting with stroke alert, unresponsive, weakness. TECHNIQUE: Multidetector CT angiography of the neck was performed after the administration of intravenous contrast. 3-D volumetric and/or maximum intensity projection (MIP) images were subsequently reconstructed for review. IV contrast: 119 mL of Optiray 320. One or more dose lowering techniques were used consistent with the principles of ALARA (as low as reasonably achievable), including automatic exposure control, mA or kV adjustment to individual patient size, and/or use of iterative reconstruction. Stenosis measurements were based on NASCET-like criteria (distal lumen diameter as the denominator for stenosis measurement). COMPARISON: None. CT DOSE (mGy.cm): The estimated cumulative dose is 1162.85 mGy.cm. FINDINGS: Upholstery Handler topogram: Unremarkable. Aortic arch: Normal three-vessel aortic arch with patent origins of the branch vessels. Innominate artery: Patent. Right subclavian artery: Patent. Right common carotid artery: Patent. Right internal and external carotid arteries: Right carotid bifurcation patent. Right internal and external carotid arteries widely patent. Left common carotid artery: Patent. Left internal and external carotid arteries: Left carotid bifurcation patent. Left internal and external carotid arteries widely patent. Left subclavian artery: Patent. Vertebral arteries: Left dominant vertebral artery. Origin and course of the left vertebral artery patent. Nonopacification of the origin and proximal course of the right vertebral artery, which is subsequently reconstituted at the level of C6. The artery is again not opacified in the foramen transversarium at the level of C4 with subsequent reconstitution. Other: Limited intracranial evaluation within normal limits. Soft tissues of the neck normal allowing for the phase of contrast. Normal cervical spine. Mosaic attenuation of the lung apices. IMPRESSION: 1. Intermittent nonopacification of the right vertebral artery including the origin and proximal course to the level of C6. Intermittent reconstitution of flow from C6 to C5 with nonopacification at the level of C4 and subsequent reconstitution above this level. This is concerning for acute vascular injury, namely multifocal occlusion/dissection. Alternatively, intermittent flow within the right vertebral artery could relate to the fact that it is the nondominant vertebral artery with slower flow. 2. Notably, the posterior circulation relies on a left dominant vertebral artery. 3. Normal anterior circulation. 4. Small airways disease versus congestive change at the lung apices. The report will be called/faxed according to standard departmental protocol. CT head/brain wo con CLINICAL HISTORY: Unresponsive patient. Possible acute stroke. COMPARISON STUDY: No previous studies for comparison. TECHNIQUE: Axial CT of the brain is performed from the vertex to the skull bas e. IV contrast was not administered for this examination. A dose lowering technique was utilized adhering to the principles of ALARA. CT DOSE: FINDINGS: No intra or extra-axial mass lesions are visualized. There is no CT evidence of acute cortical infarction. There is no evidence of midline shift. There is no acute hemorrhage. No calvarial fractures are visualized. There are minor white matter hypodensities likely on a small vessel basis. There is a left cerebellar hypodensity versus artifact. There is no evidence of pathologic ventricular dilatation. There is partial opacification of multiple ethmoid air cells. IMPRESSION: 1. No evidence of acute hemorrhage 2. Left cerebellar hypodensity versus artifact. If neurological symptoms persist, an MRI of the brain should be considered in follow-up TECHNIQUE: CT angiography of the head was performed in a dynamic helical fashion during intravenous administration of 119 cc of Optiray 320. MIP imaging was performed. A dose lowering technique was utilized adhering to the principles of ALARA. CT DOSE: COMPARISON STUDY: No previous studies for comparison. FINDINGS: There are no lesion suspicious for aneurysm. There are no major int racranial branch occlusions. The dural venous sinuses appear patent. IMPRESSION: Unremarkable CT angiography of the brain. PG Care Time/CCT Total # of Minutes Spent Total Time Spent with Patient: Total time spent is greater than 50% in coordination of care (as documented) at patient's floor/unit and/or counseling patient regarding diagnosis and need to transfer to a higher level of care.
[2019-03-18] MEDS ORDERED: LISINOPRIL 5 MG TAB PO SCH (09:00)
[2019-03-18] MEDS ORDERED: ATORVASTATIN 40 MG TAB PO SCH (09:00)
[2019-03-18] MEDS ORDERED: ATENOLOL 50 MG TABLET PO SCH (09:00)
== END 2019-03-17 18:30 | disposition short-term general hospital (02) | DRG 61 ==
LOC: ED 10:17 → 1E 11:47